=== PATIENT | male | born 1950 | race African-American/Black ===

== ENCOUNTER 2017-02-24 07:00 | Day surgery (SDC) | payer MEDICARE, OTHER ==
[2017-02-21 09:32] VITALS: BMI 33.6
--- NOTE | 2017-02-24 08:29 | HP ---
HISTORY OF PRESENT ILLNESS: Mr. Almonte is a pleasant 66-year-old man presenting for 2 years' worth of left lower extremity L5 pain. He had a MRI from [facility] that reveals severe foraminal stenosi s to the left at L5-S1. This fits his symptoms rather well. He has had chiropractics and injections which helped, but only for a brief period of time, he would like to discuss his further options sidney g forward. PAST MEDICAL HISTORY: Significant for hypothyroidism, gout, hyperlipidemia, hypertension, BPH. CURRENT MEDICATIONS: Levothyroxine, allopurinol, simvastatin, alprazolam, prazosin, Cholecalciferol, [place]. ALLERGIES: MORPHINE. PAST SURGICAL HISTORY: Rotator cuff repair x2, left knee surgery, herniorrhaphy. PHYSICAL EXAMINATION: NEUROLOGIC: The patient is alert and oriented x3. Gait is normal. No ataxia. EXTREMITIES: Lower extremity motor exam is normal. He has a positive left straight leg raise. Norm al right straight leg raise. Reflexes are equal and present bilaterally. ASSESSMENT: Lumbar radiculopathy. PLAN: Discussed a left L5 facetectomy, foraminotomy. Dr. Melendez met with the patient, reviewed imagi ng and advocated for the same. He explained to the patient the risks, benefits, and alternatives to the procedure. The patient expressed understanding and would like to move forward with surgery as hansel goins. I do believe the patient is mentally competent and capable of making medical decisions for himself and we will move forward with surgery as planned.
[2017-02-24] MEDS ORDERED: Midazolam HCl 2 mg/2 ml Vial ONE (09:35)
[2017-02-24] MEDS ORDERED: Thrombin 5000 UNITS/5 ML VIAL ONE (09:44)
[2017-02-24] MEDS ORDERED: Bupivacaine/Epinephrine 0.25% 30 ML VIAL ONE (09:44)
[2017-02-24] MEDS ORDERED: CEFAZOLIN/Water 2 GM/20 ML SYRINGE ONE ×2 (09:44→14:57)
[2017-02-24] MEDS ORDERED: Fentanyl 250 MCG/5 ML VIAL ONE (10:03)
[2017-02-24] MEDS ORDERED: Tamsulosin HCl 0.4 MG CAP ONE (11:35)
--- NOTE | 2017-02-24 11:36 | OP ---
DATE OF OPERATION: 02/24/2017 SURGEON: Akbar Melendez M.D. ASSISTANT STORE LEADER: Francesco Deshpande PA-C INDICATION: Pain. DIAGNOSIS: Lumbar radiculopathy. PROCEDURE: Left L5 foraminotomy. ANESTHESIA: General. TECHNIQUE: The patient was brought into the operating room and placed under general anesthesia. He was flipped from a supine to a prone position on the operating room table. A linear incision was lobo nned over the L5 segment. After prepping and draping and after an appropriate operative pause, the i ncision was created. The soft tissues were swept left of midline. A self-retaining retractor was pl aced in the wound for optimal exposure. After confirming the appropriate level with C-arm fluoroscop y, a high-speed cutting drill bit as well as 2, 3, and 4 mm Kerrisons were used to perform a laminect fran along the inferior aspect of L5 and superior aspect of S1. The laminectomy was extended laterall y to encompass the medial third of the facet joint in order to decompress the exiting L5 nerve root e ffectively performing a foraminotomy. The wound was irrigated. Hemostasis was maintained throughout . The wound was then closed in anatomic layers and a pressure dressing was applied. There were no k nown procedural complications.
[2017-02-24] MEDS ORDERED: Fentanyl 100 MCG/2 ML VIAL ONE ×2 (12:05→12:45)
[2017-02-24] MEDS ORDERED: Lidocaine 1% PF 5 ML VIAL ONE (13:32)
[2017-02-24] MEDS ORDERED: Glycopyrrolate 0.2 MG/ML 5 ML SYRINGE ONE ×2 (13:32)
[2017-02-24] MEDS ORDERED: Vecuronium 10 MG VIAL ONE (13:32)
[2017-02-24] MEDS ORDERED: Dexamethasone 20 MG/5 ML VIAL ONE (13:32)
[2017-02-24] MEDS ORDERED: Propofol 200 MG/20 ML VIAL ONE (13:32)
[2017-02-24] MEDS ORDERED: PHENYLEPHRINE-NS 100 MCG/ML 10 ML SYRINGE ONE (13:32)
[2017-02-24] MEDS ORDERED: ePHEDrine/0.9% NaCl/PF SYRINGE 50 mg/10 ml ONE (13:32)
[2017-02-24] MEDS ORDERED: Ondansetron HCl/PF 4 MG/2 ML Vial ONE (13:32)
[2017-02-24] MEDS ORDERED: Acetaminophen/Codeine 30-300mg Tablet ONE (13:37)
== END 2017-02-24 15:30 | disposition home or self-care (01) ==
LOC: SDC 07:00
PROVIDERS: ATTEND Neurological Surgery
PROC: 01NB0ZZ Release Lumbar Nerve, Open Approach (ICD-10-PCS; principal; 2017-02-24)
DX: M54.16 Radiculopathy, lumbar region (principal); E03.9 Hypothyroidism, unspecified; M10.9 Gout, unspecified; E78.5 Hyperlipidemia, unspecified; I10 Essential (primary) hypertension; N40.0 Benign prostatic hyperplasia without lower urinary tract symptoms; F17.200 Nicotine dependence, unspecified, uncomplicated; Z79.1 Long term (current) use of non-steroidal anti-inflammatories (NSAID); Z79.899 Other long term (current) drug therapy; Z88.5 Allergy status to narcotic agent; Z98.890 Other specified postprocedural states
CPT/HCPCS: 76001; 96374; J0131; J2250; J3010